=== PATIENT | male | born 1935 | race Caucasian/White ===

== ENCOUNTER 2022-01-05 16:08 | Inpatient (IN) | payer MEDICARE ==
[~2022-01-05] VITALS: Ht 154.9 cm; Wt 68.0 kg
[2022-01-05 18:07] LABS: HEMOGLOBIN 13.5 gm/dl (14.0-17.5); RED BLOOD COUNT 4.27 M/UL (4.20-5.50); WHITE BLOOD COUNT 12.5 K/UL (4.5-11.0)
[2022-01-05 18:29] LABS: BUN/CREATININE RATIO 26 (0-10)
[2022-01-06 05:12] LABS: HEMOGLOBIN 12.1 gm/dl (14.0-17.5); RED BLOOD COUNT 3.85 M/UL (4.20-5.50)
[2022-01-06 05:13] LABS: WHITE BLOOD COUNT 6.3 K/UL (4.5-11.0)
[2022-01-06 05:19] LABS: BUN/CREATININE RATIO 23 (0-10)
[2022-01-06] MEDS ORDERED: ELIQUIS5 MG PO (10:28)
[2022-01-07 03:54] LABS: HEMOGLOBIN 11.3 gm/dl (14.0-17.5); RED BLOOD COUNT 3.57 M/UL (4.20-5.50)
[2022-01-07 03:57] LABS: WHITE BLOOD COUNT 8.1 K/UL (4.5-11.0)
[2022-01-07 04:18] LABS: BUN/CREATININE RATIO 17 (0-10)
[2022-01-08 05:17] LABS: HEMOGLOBIN 11.4 gm/dl (14.0-17.5); RED BLOOD COUNT 3.58 M/UL (4.20-5.50); WHITE BLOOD COUNT 8.8 K/UL (4.5-11.0)
[2022-01-08 05:42] LABS: BUN/CREATININE RATIO 18 (0-10)
[2022-01-08] MEDS ORDERED: CARVEDILOL3.125 MG PO (11:40)
[2022-01-08] MEDS ORDERED: ACETAMINOPHEN500 MG PO (11:40)
[2022-01-09 04:49] LABS: BUN/CREATININE RATIO 17 (0-10)
[2022-01-09 04:56] LABS: HEMOGLOBIN 11.6 gm/dl (14.0-17.5); RED BLOOD COUNT 3.63 M/UL (4.20-5.50); WHITE BLOOD COUNT 7.9 K/UL (4.5-11.0)
== END 2022-01-09 16:00 | DRG 563 ==
LOC: ER1 16:08 → CCU 18:49 → CDU 18:49 → CCU 01-06 01:14
PROVIDERS: Emergency Medicine; Internal Medicine; ADMIT Internal Medicine
PROC: B24BZZZ Ultrasonography of Heart with Aorta (ICD-10-PCS; principal; 2022-01-07)
DX: S42.202A Unspecified fracture of upper end of left humerus, initial encounter for closed fracture (principal); S32.592A Other specified fracture of left pubis, initial encounter for closed fracture; I47.1 Supraventricular tachycardia; W01.0XXA Fall on same level from slipping, tripping and stumbling without subsequent striking against object, initial encounter; Z87.891 Personal history of nicotine dependence; Z86.718 Personal history of other venous thrombosis and embolism; Z79.01 Long term (current) use of anticoagulants; Z79.899 Other long term (current) drug therapy
CPT/HCPCS: 36415; 70450; 71045; 72125; 72192; 73030; 73080; 73502; 73552; 80048; 80053; 80061; 82550; 82553; 83036; 83540; 83550; 83735; 84439; 84443; 84484; 85025; 85027; 85610; 90471; 90715; 93005; 93308; 93970; 96374; 96375; 96376; 97162; 97166; 97530; 97530-GP-CQ; 99285; C9113; J2270; J2405; U0002